=== PATIENT | male | born 1955 | race Caucasian/White ===

== ENCOUNTER 2020-04-29 06:59 | Day surgery (SDC) | payer BC ==
[2020-04-26 10:20] LABS: HEMOGLOBIN 14.9 g/dL (13.5-17.5); MCH 30.5 pg (26.0-34.0); MCHC 32.4 g/dL (31.0-37.0); MCV 94.3 fL (80.0-100.0); RBC 4.88 10x6/uL (4.20-6.10); RDW 14.2 % (11.5-14.5); WBC 9.2 10x3/uL (4.8-10.8)
[~2020-04-29] VITALS: Ht 180.3 cm; Wt 117.0 kg
--- NOTE | ~2020-04-29 | OP ---
PATIENT NAME: STERLING ALLEN MEDICAL RECORD: [id number] :57 LOCATION:[facility] ADMISSION DATE: SURGEON: LIYA HENNING MD DATE OF OPERATION: 04/29/2020 PREOPERATIVE DIAGNOSES: Lumbar spinal stenosis with scar formation at L3-L4, L4-L5, and L5-S1. PROCEDURE: Redo lumbar laminectomy at L3, L4, L5 and S1 on the right with a Carlos retractor. SURGEON: Liya Henning MD [employer] NET DEVELOPER: Freedom Xiong. DESCRIPTION OF TECHNIQUE: After induction of general endotracheal anesthesia, the patient was rolled prone on a Seraifn frame. Lumbar spine was prepped and draped in usual sterile fashion. Fluoroscopic x-ray and spinal needle localized at L3-L4 interspace on the right side. After infiltration of 1:100,000 epinephrine with 1% lidocaine, a skin incision was carried out in the midline from the L3 interspace down to the L5-S1 interspace. There were no spinous processes identified on fluoroscopic x-ray. Dissection took place with Bovie cautery through scar tissue down to the medial facets at L3-L4, L4-L5 and L5-S1 on the right. The L3-L4 interspace was identified with fluoroscopic x-ray and a nerve hook. Following this, a microscope and Midas Riley drill were used to perform a medial facetectomy and laminectomy at L3-L4, L4-L5 and L5-S1 on the right. Hypertrophied ligamentum flavum was removed from the lateral recesses as well as a cicatrix from the lateral recesses. Following this, the L3, L4, L5 and S1 nerve roots were decompressed well on the right side. Central canal compression was also relieved by removal of hypertrophied medial facet joints at L3-L4 and L4-L5. Meticulous hemostasis was maintained throughout the wound. The wound was irrigated with copious amounts of Ancef irrigant solution. The fascia was reapproximated with interrupted 2-0 Vicryl suture, the subdermal layer was closed with interrupted 3-0 Vicryl suture, the skin was closed with luz. A sterile dressing was applied to the wound. The patient was awakened in good condition and taken to recovery. All counts were reported as correct. ESTIMATED BLOOD LOSS: Minimal. Freedom Xiong as professional nursing assistant provided retraction, hemostasis throughout the procedure. TRANSINT:[id number] Voice Confirmation ID: [id number] DOCUMENT ID: [id number] LIYA HENNING MD CC: [id number] DICTATION DATE: 05/02/20801 CUBE MACHINE TENDER: 05/02/20 [address] [facility] 04/29/20 [place] [id number]
[~2020-04-29 06:59] MED LIST: ATIVAN2 MG PO; OXYCONTIN10 MG PO; ULTRAM50 MG PO
[2020-04-29 07:37] VITALS: BP 145/87; Ht 180.3 cm; Wt 117.0 kg
[2020-04-29] MEDS ORDERED: HYDROCODON-ACE1 EA10 PO (11:56)
[2020-04-29] MEDS ORDERED: LYRICA75 MG PO (11:57)
[2020-04-29] MEDS ORDERED: MEDROL DOSE PACK4 MG PO (12:08)
--- NOTE | 2020-04-29 12:24 | NUR ---
OPA IN AIRWAY ON ADMIT
--- NOTE | 2020-04-29 12:34 | NUR ---
EQUAL STRENGHTS BOTH LOWER EXTREMETIES PT. REPORTED "NO NUMBNESS OR TINGLING"
--- NOTE | 2020-04-29 13:08 | NUR ---
1245 BILATERAL STRENGTH IN LEGS AND GOOD SENSATION BILATERLLY. SPOT OF PINK NOTED ON DRESSING. PAIN 7/10 RECIEVED PUDDING AND A PAIN PILL
--- NOTE | 2020-04-29 14:07 | NUR ---
1315 MEDICATED FOR PAIN. 1400 VOIDED IN BATHROOM. PAIN EASING SOME
== END 2020-04-29 14:09 | disposition home or self-care (01) ==
LOC: D.OPS 06:59 → D.PAN 09:30 → D.OPS 09:30
PROVIDERS: Anesthesiology; ATTEND Neurological Surgery
DX: M48.061 Spinal stenosis, lumbar region without neurogenic claudication (principal); E78.2 Mixed hyperlipidemia